=== PATIENT | female | born 1995 | race Two or more races ===

== ENCOUNTER 2016-10-11 16:32 | Emergency (ER) | payer MEDICAID ==
--- NOTE | 2016-10-11 16:55 | ED Physician Chart ---
Chief Complaint/HPI - Patient Information Date Seen:: 10/11/16 Time Seen:: 16:50 Chief Complaint:: cough History of Present Illness:: this is a 21 yr old female with several days of a cough and sore throat. she denies fever and painful urination. she denies and denies all orher medical illnesses. she denies previous bouts of pneumonia, asthma and sore throat. Allergies:: Allergies Allergy/AdvReac Type Severity Reaction Status Date / Time No Known Allergies Allergy Verified 10/11/16 16:36 Vitals:: Vital Signs - 8 hr 10/11/16 16:37 Temp 99.0 F HR 82 RR 17 BP 120/68 O2 Sat % 97 Historian:: Patient Review:: Nurse's Note Reviewed Review of Systems - Review of Systems General/Constitutional: Fever, No chills, No weight loss, No weakness, No diaphoresis, No edema, No loss of appetite Skin: No skin lesions, No rash, No bruising Head: No headache, No light-headedness Eyes: No loss of vision, No pain, No diplopia ENT: No earache, No nasal drainage, Sore throat, No tinnitus Neck: No neck pain, No swelling, No thyromegaly, No stiffness, No mass noted Cardio Vascular: No chest pain, No palpitations, No PND, No orthopnea, No edema Pulmonary: No SOB, Cough, No sputum, No wheezing GI: No nausea, No vomiting, No diarrhea, No pain, No melena, No hematochezia, No constipation, No hematemesis G/U: No dysuria, No frequency, No hematuria Musculoskeletal: No bone or joint pain, No back pain, No muscle pain Endocrine: No polyuria, No polydipsia Psychiatric: No prior psych history, No depression, No anxiety, No suicidal ideation Hematopoietic: No bruising, No lymphadenopathy Allergic/Immuno: No urticaria, No angioedema Neurological: No syncope, No focal symptoms, No weakness, No paresthesia, No headache, No seizure, No dizziness, No confusion, No vertigo Past Medical History - Past Medical History Obtainable: Yes Past Medical History: No significant medical hx Family History: None Social History: Non Smoker, No Alcohol, No Drug Use Surgical History: None Psychiatricy History: None Medication: Reviewed Family Medical History - Family Member Grandmother History Unknown: Yes Ethnicity: Hx Family Diabetes: Yes Physical Exam - Physical Examination General/Constitutional: Awake, Well-developed, well-nourished, Alert, No distress, GCS 15, Non-toxic appearing, Ambulatory Head: Atraumatic Eyes: Lids, conjuctiva normal, PERRL, EOMI Skin: Nl inspection, No rash, No skin lesions, No ecchymosis, Well hydrated, No lymphadenopathy ENMT: External ears, nose nl, Nasal exam nl, Lips, teeth, gums nl, Oropharynx nl (posterior pharynx is red and swollen) Neck: Nontender, Full ROM w/o pain, No JVD, No nuchal rigidity, No bruit, No mass, No stridor Respiratory: Nl effort/Exclusion, Clear to Auscultation Other Respiratory comments:: there are bilateral ronchi heard Cardio Vascular: RRR, No murmur, gallop, rubs, NL S1 S2 GI: No tenderness/rebounding/guarding, No organomegaly, No hernia, Normal BS's, Nondistended, No mass/bruits, No McBurney tenderness : No CVA tenderness Extremities: No tenderness or effusion, Full ROM, normal strength in all extremities, No edema, Normal digits & nails Neuro/Psych: Alert/oriented, DTR's symmetric, Normal sensory exam, Normal motor strength, Judgement/insight normal, Mood normal, Normal gait, No focal deficits Misc: normal gait, Normal back, No paraspinal tenderness Assessment - Assessment General Assessment: bronchitis ED Septic Shock - . Is Septic Shock (SBP<90, OR Lactate>4 mmol\L) present?: No - <6hrs of presentation: Vital Signs: Vital Signs - 8 hr /01/18 16:37 Temp 99.0 F HR 82 RR 17 BP 120/68 O2 Sat % 97 Reassessment (Disposition) - Reassessment Reassessment Condition:: Unchanged - Diagnosis Diagnosis:: pharyngitis bronchitis - Aftercare/Follow up Instructions Aftercare/Follow-Up Instructions:: Counseled pt regarding lab results/diagnosis & need follow up, Refer to Discharge Instructions, Counseled pt & family regarding lab results/diagnosis & need follow up - Patient Disposition Discharge/Transfer:: Home Condition at Disposition:: Improved ED Discharge Plan - Patient Disposition Admit/Discharge/Transfer: PT DISCHARGED HOME Condition at Disposition: Improved
== END 2016-10-11 17:05 | disposition home or self-care (01) ==
LOC: ER 16:32
DX: J02.9 Acute pharyngitis, unspecified (principal); J40 Bronchitis, not specified as acute or chronic
CPT/HCPCS: Z7502

== ENCOUNTER 2017-01-22 11:55 | Emergency (ER) | payer MEDICAID ==
--- NOTE | 2017-01-22 12:36 | ED Physician Chart ---
ED Chief Complaint/HPI - Patient Information Date Seen:: 01/22/17 Time Seen:: 12:35 Chief Complaint:: LEFT EAR ACHE SINCE YESTERDAY AM History of Present Illness:: PT AWOKE YESTERDAY WITH DULL PAIN IN THE LT EAR AND SURROUNDING SOFT TISSUES. PAIN IS7/10 SEVERITY AND ACHING. NO RADIATION. IS MADE WORSE WHEN SHE SWALLOWS. NO DISCHARGE FROM THE EAR. NO DECREASE IN HEARING. HAS SWOLLEN GLANDS IN LT SIDE OF HER NECK. NO FEVER OR CHILLS. NO DIAPHORESIS. NO RASH. Allergies:: Allergies Allergy/AdvReac Type Severity Reaction Status Date / Time No Known Allergies Allergy Verified 10/11/16 16:36 Vitals:: Vital Signs - 8 hr 01/22/17 01/22/17 12:07 12:27 Temp 97.9 F HR 74 RR 16 16 BP 121/65 O2 Sat % 98 ED Review of Systems - Review of Systems General/Constitutional: No fever, No chills, No weight loss, No weakness, No diaphoresis, No edema, No loss of appetite Skin: No skin lesions, No rash, No bruising Head: No headache, No light-headedness Eyes: No loss of vision, No diplopia ENT: Earache, No nasal drainage, Sore throat, No tinnitus (LT SIDED NECK PAIN WITH SWOLLEN GLANDS.) Neck: Neck pain, No stiffness, Mass noted Cardio Vascular: No chest pain, No palpitations, No edema Pulmonary: No SOB, No cough, No sputum, No wheezing GI: No nausea, No vomiting, No diarrhea, No pain G/U: No dysuria, No frequency, No hematuria Textile Examiner: No abnormal vaginal bleed Musculoskeletal: No bone or joint pain, No back pain Psychiatric: Prior psych history, No depression, No anxiety, No suicidal ideation Hematopoietic: No bruising, Lymphadenopathy Allergic/Immuno: No urticaria, No angioedema Neurological: No syncope, No focal symptoms, No weakness, No paresthesia, No seizure, No confusion, No vertigo ED Past Medical History - Past Medical History Past Medical History: No significant medical hx Social History: Non Smoker, Lives With Parents, Employed, Other (SOCIAL USE OF ALCOHOL) Employment:: EMPLOYED as a [employer] Family Medical History - Family Member Grandmother History Unknown: Yes Ethnicity: Hx Family Diabetes: Yes ED Physical Exam - Physical Examination General/Constitutional: Awake, Well-developed, well-nourished, Alert, GCS 15, Non-toxic appearing, Ambulatory Other Gen/Cons comments:: MILD DISCOMFORT FROM COMPLAINED OF EAR ACHE. Head: Atraumatic Eyes: Lids, conjuctiva normal, PERRL, EOMI Skin: Nl inspection, No rash, No skin lesions, No ecchymosis, Well hydrated Other Skin comments:: Patient has tender lymphadenopathy along the left anterior sternocleidomastoid. ENMT: External ears, nose nl, TM canals nl, Lips, teeth, gums nl Other ENMT comments:: Both TMs are completely clear with no inflammation. His no swelling or drainage of the auditory canal. Positive lymphadenopathy posterior to the left ear. Mildly inflamed left tonsil with 3-4+ chills. No peritonsillar swelling or prominence. Voice is normal. Neck: No JVD, No nuchal rigidity, No mass Other Neck comments:: Tender lymphadenopathy in the left side of the neck. Respiratory: Nl effort/Exclusion, Clear to Auscultation, No Wheeze/Rhonchi/Rales Cardio Vascular: No murmur, gallop, rubs, NL S1 S2 Other Cardio Vascular comments:: Good pulses in all 4 extremities. GI: No tenderness/rebounding/guarding, No organomegaly, No hernia, Nondistended , No mass/bruits, No McBurney tenderness Other GI comments:: Rectal exam deferred at my discretion. : No CVA tenderness Extremities: No tenderness or effusion, Full ROM, normal strength in all extremities, No edema Neuro/Psych: Alert/oriented, Normal sensory exam, Normal motor strength, Judgement/insight normal, Mood normal, Normal gait, No focal deficits Misc: Normal back, No paraspinal tenderness ED Labs/Radiology/EKG Results - Lab Results Results: NO LAB OR RADIOLOGY STUDIES INDICATED. ED Assessment - Assessment General Assessment: CASE SUMMARY: 21-year-old female awoke yesterday morning with discomfort localized to the left ear and left side of her neck. She has no decrease in hearing or tinnitus. No vertigo. He rated the pain as a 7/10 in severity which was dull. There was increased discomfort with swallowing. On physical examination hearing was normal as tested by [employer]ING[employer]. Both TMs and auditory canals completely normal. Mild inflammation of the left tonsil. No lymphadenopathy in the left cervical chain. Patient was given 8 mg of dexamethasone by mouth. She was given a standby prescription for Pen-Vee K 500 mg to be taken 4 times a day for 10 days if she does not have significant improvement in the discomfort by tomorrow morning. If the pain has resolved or markedly improved she can tear up the prescription. MDM FOR LEFT EAR PAIN: NOT otitis media based on physical examination. NOT otitis externa based on physical examination. NOT peritonsillar abscess based on physical exam. NOT LEMIERRE'S SYNDROME based on physical examination. ED Septic Shock - . Is Septic Shock (SBP<90, OR Lactate>4 mmol\L) present?: No - <6hrs of presentation: Vital Signs: Vital Signs - 8 hr 01/22/17 01/22/17 12:07 12:27 Temp 97.9 F HR 74 RR 16 16 BP 121/65 O2 Sat % 98 ED Reassessment (Disposition) - Reassessment Reassessment Condition:: Unchanged - Diagnosis Diagnosis:: LT SIDED TONSILLITIS WITH REACTIVE LYMPHADENOPATHY. The patient was provided a standby prescription for Pen-Vee K 500 mg to be taken 4 times a day for a 10 day course if her symptoms had not improved by tomorrow morning. If the symptoms improve she can throw the prescription away. She was further advised that if she had significant increase in pain she should return to the emergency department for reevaluation. - Aftercare/Follow up Instructions Notes:: Patient counseled regarding findings of physical examination. ED Discharge Plan - Patient Disposition Prescriptions: Penicillin V Potassium [Penicillin Vk] 500 mg PO QID 10 Days #40 tab Instructions: Tonsillitis, [id number] Additional Instructions: Pls follow up with your primary care physician in 1-2 days.
== END 2017-01-22 13:05 | disposition home or self-care (01) ==
LOC: ER 11:55
DX: J03.90 Acute tonsillitis, unspecified (principal); R59.0 Localized enlarged lymph nodes
CPT/HCPCS: 99283; J8540; Z7502

== ENCOUNTER 2017-06-19 11:50 | Emergency (ER) | payer MEDICAID ==
--- NOTE | 2017-06-19 12:03 | ED Physician Chart ---
ED Chief Complaint/HPI - Patient Information Date Seen:: 06/19/17 Time Seen:: 12:01 Chief Complaint:: Sore throat, ear pressure History of Present Illness:: 22 yo female had sore throat for 4 days. She had no ear pain but had ear pressure for 4 days, ear pressure worse on the right side. She had nasal congestion for 1 day. No fever, No cough. Allergies:: Allergies Allergy/AdvReac Type Severity Reaction Status Date / Time No Known Allergies Allergy Verified 10/11/16 16:36 ED Review of Systems - Review of Systems General/Constitutional: No fever Skin: No skin lesions Head: No headache Eyes: No pain ENT: Earache Cardio Vascular: No chest pain Pulmonary: No SOB GI: No nausea, No vomiting Musculoskeletal: No bone or joint pain ED Past Medical History - Past Medical History Past Medical History: No significant medical hx Social History: Non Smoker, No Alcohol, No Drug Use Surgical History: other (wisdom teeth) Family Medical History - Family Member Grandmother History Unknown: Yes Ethnicity: Hx Family Diabetes: Yes ED Physical Exam - Physical Examination General/Constitutional: Awake Head: Atraumatic Eyes: PERRL Skin: No skin lesions ENMT: TM canals nl Neck: No nuchal rigidity Respiratory: Clear to Auscultation, No Wheeze/Rhonchi/Rales Cardio Vascular: RRR, No murmur, gallop, rubs, NL S1 S2 GI: No tenderness/rebounding/guarding Extremities: normal strength in all extremities Neuro/Psych: No focal deficits ED Assessment - Assessment General Assessment: Upper respiratory infection Assessment/Comments:: Decadron 4mg PO x 1 D/c home Gave a prescription of Amoxicillin 500mg bid x 5 days. If patient feel better after one day, no need to fill the prescription. ED Septic Shock - . Is Septic Shock (SBP<90, OR Lactate>4 mmol\L) present?: No ED Reassessment (Disposition) - Reassessment Reassessment Condition:: Improved - Patient Disposition Discharge/Transfer:: Home
== END 2017-06-19 12:45 | disposition home or self-care (01) ==
LOC: ER 11:50
DX: J06.9 Acute upper respiratory infection, unspecified (principal)
CPT/HCPCS: 99283; J8540; Z7502

== ENCOUNTER 2018-09-07 09:10 | Emergency (ER) | payer MEDICAID ==
--- NOTE | 2018-09-07 09:38 | ED Physician Chart ---
ED Chief Complaint/HPI - Patient Information Date Seen:: 09/07/18 Time Seen:: 09:25 Chief Complaint:: rhinorrhea, cough and sore throat History of Present Illness:: Patient's had rhinorrhea, cough productive of green sputum and sore throat for the last 3 days. She had a subjective fever initially. Patient did not receive an influenza vaccination this season. Allergies:: Allergies Allergy/AdvReac Type Severity Reaction Status Date / Time No Known Allergies Allergy Verified 09/07/18 09:18 Vitals:: Vital Signs - 8 hr 09/07/18 09:18 Temp 97.6 F HR 80 RR 18 BP 104/63 O2 Sat % 98 Historian:: Patient Review:: Nurse's Note Reviewed ED Review of Systems - Review of Systems General/Constitutional: Fever, No chills, No weight loss, No weakness, No diaphoresis, No edema, No loss of appetite Skin: No skin lesions, No rash, No bruising Head: No headache, No light-headedness Eyes: No loss of vision, No pain, No diplopia ENT: No earache, No nasal drainage, Sore throat, No tinnitus Neck: No neck pain, No swelling, No thyromegaly, No stiffness, No mass noted Cardio Vascular: No chest pain, No palpitations, No PND, No orthopnea, No edema Pulmonary: No SOB, Cough, Sputum, No wheezing GI: No nausea, No vomiting, No diarrhea, No pain, No melena, No hematochezia, No constipation, No hematemesis G/U: No dysuria, No frequency, No hematuria Musculoskeletal: No bone or joint pain, No back pain, No muscle pain Endocrine: No polyuria, No polydipsia Psychiatric: No prior psych history, No depression, No anxiety, No suicidal ideation Hematopoietic: No bruising, No lymphadenopathy Allergic/Immuno: No urticaria, No angioedema Neurological: No syncope, No focal symptoms, No weakness, No paresthesia, No headache, No seizure, No dizziness, No confusion, No vertigo ED Past Medical History - Past Medical History Past Medical History: No significant medical hx Family History: HTN Social History: Non Smoker, No Alcohol Surgical History: None Psychiatricy History: None Medication: None Family Medical History - Family Member Grandmother History Unknown: Yes Ethnicity: Hx Family Diabetes: Yes Mother History Unknown: Yes Father Age: 48 Ethnicity: Living Status: Still Living Hx Family Diabetes: Yes ED Physical Exam - Physical Examination General/Constitutional: Awake, Well-developed, well-nourished, Alert, No distress, GCS 15, Non-toxic appearing, Ambulatory Head: Atraumatic Eyes: Lids, conjuctiva normal, PERRL, EOMI Skin: Nl inspection, No rash, No skin lesions, No ecchymosis, Well hydrated, No lymphadenopathy ENMT: External ears, nose nl, Nasal exam nl, Lips, teeth, gums nl Neck: Nontender, Full ROM w/o pain, No JVD, No nuchal rigidity, No bruit, No mass, No stridor Respiratory: Nl effort/Exclusion, Clear to Auscultation, No Wheeze/Rhonchi/Rales Cardio Vascular: RRR, No murmur, gallop, rubs, NL S1 S2 GI: No tenderness/rebounding/guarding, No organomegaly, No hernia, Normal BS's, Nondistended, No mass/bruits, No McBurney tenderness : No CVA tenderness Extremities: No tenderness or effusion, Full ROM, normal strength in all extremities, No edema, Normal digits & nails Neuro/Psych: Alert/oriented, DTR's symmetric, Normal sensory exam, Normal motor strength, Judgement/insight normal, Mood normal, Normal gait, No focal deficits Misc: Normal back, No paraspinal tenderness ED Assessment - Assessment General Assessment: Plan was to do a influenza screen but patient declined stating she thinks a nasal swab would be painful. Told patient antibiotics are not effective for a viral infection. ED Septic Shock - . Is Septic Shock (SBP<90, OR Lactate>4 mmol\L) present?: No - <6hrs of presentation: Vital Signs: Vital Signs - 8 hr 09/07/18 09:18 Temp 97.6 F HR 80 RR 18 BP 104/63 O2 Sat % 98 ED Reassessment (Disposition) - Reassessment Reassessment Condition:: Unchanged - Diagnosis Diagnosis:: Acute viral upper respiratory tract infection. - Aftercare/Follow up Instructions Aftercare/Follow-Up Instructions:: Refer to Discharge Instructions - Patient Disposition Discharge/Transfer:: Home Condition at Disposition:: Stable, Unchanged
== END 2018-09-07 09:50 | disposition home or self-care (01) ==
LOC: ER 09:10
DX: J06.9 Acute upper respiratory infection, unspecified (principal)
CPT/HCPCS: Z7502